=== PATIENT | male | born 1990 | race Two or more races ===

== ENCOUNTER 2016-04-23 09:00 | Emergency (ER) | payer MEDICAID ==
[2016-04-23 09:13] VITALS: BP 121/76; PULSE 92; RESP 18; TEMP 98.2; O2SAT 99
--- NOTE | 2016-04-23 09:22 | EDPHY ---
H & P Time Seen by Provider: 04/23/16 09:06 HPI/ROS: CHIEF COMPLAINT: Right facial droop, can't close eye HISTORY OF PRESENT ILLNESS: This 25-year-old man presents with right facial weakness starting this morning. He can actually close his right eyelid but feels that it is not as strong as the left. He also felt like he was drooling and had some right facial weakness when he was brushing his teeth. Not associated with neck pain or headache. No weakness or numbness in extremities. No double vision. No dizziness or vertigo. 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 PAST MEDICAL HISTORY: Negative Social history: Nonsmoker no drugs General Appearance: Alert and conversant, cooperative. Eyes: No scleral icterus. Extraocular movements intact but does have right lateral pupil gaze at rest which is chronic. ENT, Mouth: Normal mucous membranes. Normal tympanic membranes. Respiratory: Normal respiratory effort, breath sounds equal, lungs are clear to auscultation. Cardiovascular: Regular rate and rhythm. Gastrointestinal: Abdomen is soft and non tender. Neurological: Alert and oriented x3. Normally conversant. Right facial droop which includes the forehead. He is able to close his right eye completely but is not as strong as on the left. Skin: Warm and dry, no rashes. Musculoskeletal: No peripheral edema and no joint swelling. Psychiatric: Not agitated. Emergency Department course/MDM: Patient presents with Howard's palsy. I do not think this represents intracranial mass or bleed, [employer] infection, or acute stroke. He does have a right eye lateral gaze is at rest which is longstanding for him and not new. Antivirals and steroids discussed and consented. Smoking Status: Never smoked Constitutional: Initial Vital Signs Temperature (C) 36.8 C 04/23/16 09:11 Heart Rate 92 04/23/16 09:11 Respiratory Rate 18 04/23/16 09:11 Blood Pressure 121/76 H 04/23/16 09:11 O2 Sat (%) 99 04/23/16 09:11 O2 Delivery Mode Room Air Allergies/Adverse Reactions: No Known Allergies Allergy (Unverified 04/23/16 09:11) Home Medications: Medication Instructions Recorded Valacyclovir HCl [Valtrex] 1,000 mg PO TID #21 tab 04/23/16 predniSONE 10 mg PO AD #15 tab 04/23/16 MDM/Departure - Depart Disposition: Home, Routine, Self-Care Clinical Impression: Howard's palsy Condition: Good Instructions: Howard Palsy (ED) Prescriptions: predniSONE 10 mg PO AD #15 tab Valacyclovir HCl [Valtrex] 1,000 mg PO TID #21 tab Referrals: Freedom Ayala MD [Medical Doctor] - 5-7 days, if not improved
== END 2016-04-23 09:33 | disposition home or self-care (01) ==
DX: G51.0 Bell's palsy (principal)
CPT/HCPCS: 82947-QW